=== PATIENT | female | born 1995 | race Hispanic/Latino ===

== ENCOUNTER 2016-03-30 10:31 | Emergency (ER) | payer OTHER ==
[2016-03-30] MEDS ORDERED: ONDANSETRON 4MG/2ML VIAL (J2405) As Ordered ONE (11:41)
[2016-03-30] MEDS ORDERED: KETOROLAC 30 MG/ML VIAL (J1885) As Ordered ONE (11:41)
[2016-03-30] MEDS ORDERED: methylPREDNISolone INJ 125 MG/2 ML VIAL (J2930) As Ordered ONE (11:41)
[2016-03-30 12:09] LABS: CONTROL LINE UCG INT CTR LINE PRESENT
[2016-03-30 12:14] LABS: BASO # 0.1 K/mm3 (0.0-0.2); BASO % 1.3 % (0.0-1.0); EOS # 0.2 K/mm3 (0.0-0.50); EOS % 4.2 % (0.0-3.0); LARGE UNSTAINED CELL # 0.1 K/mm3 (0.0-0.4); LARGE UNSTAINED CELL % 2.5 % (0.0-4.0); LYMPH # 1.3 K/mm3 (1.5-6.5); LYMPH % 21.1 % (24.0-44.0); MEAN CORPUSCULAR HEMOGLOBIN 32.2 pg (27.0-33.0); MEAN CORPUSCULAR HGB CONC 32.9 g/dl (32.0-36.5); MEAN CORPUSCULAR VOLUME 97.9 fl (80.0-96.0); MONO # 0.3 K/mm3 (0.0-0.8); NEUTROPHILS # 3.7 K/mm3 (1.8-7.7); PLATELET COUNT, AUTOMATED 213 k/mm3 (150-450); RED CELL DISTRIBUTION WIDTH 13.2 % (11.5-14.5); WHITE BLOOD COUNT 5.6 K/mm3 (4.0-10.0)
[2016-03-30 12:21] LABS: ALBUMIN 3.9 GM/DL (3.2-5.2); ALBUMIN/GLOBULIN RATIO 0.89 (1.00-1.93); ALKALINE PHOSPHATASE 63 U/L (45-117); ALT/SGPT 35 U/L (12-78); ANION GAP 7 MEQ/L (8-16); AST/SGOT 22 U/L (15-37); BILIRUBIN,DIRECT 0.1 MG/DL (0.0-0.2); BILIRUBIN,TOTAL 0.3 MG/DL (0.2-1.0); BLOOD UREA NITROGEN 7 MG/DL (7-18); CALCIUM LEVEL 8.8 MG/DL (8.5-10.1); CARBON DIOXIDE LEVEL 26 MEQ/L (21-32); CHLORIDE LEVEL 106 MEQ/L (98-107); CREATININE FOR GFR 0.67 MG/DL (0.55-1.02); GLOMERULAR FILTRATION RATE > 60.0 (>60); GLUCOSE, FASTING 84 MG/DL (70-105); POTASSIUM SERUM 3.8 MEQ/L (3.5-5.1); SODIUM LEVEL 139 MEQ/L (136-145); TOTAL PROTEIN 8.3 GM/DL (6.4-8.2)
--- NOTE | 2016-03-30 13:01 | EDDOCDS ---
Physician Documentation [facility] Name: Capri Bolaños Age: 21 yrs Sex: Female : 1995 Arrival Date: 03/30/2016 Time: 10:31 Bed I4 / M4 Private MD: BEBO Biswas Disposition: 03/30/16 12:47 Discharged to Home/Self Care. Impression: Ulcerative colitis. - Condition is Stable. - Discharge Instructions: Ulcerative Colitis. - Prescriptions for Ultram 50 mg Oral Tablet - take 1 tablet by ORAL route every 6 hours As needed MDD: 4 tabs; 16 tablet. Medrol (Agus) 4 mg Oral Tablets, Dose Pack - take 1 Pack by ORAL route as directed - follow package instructions; 1 packet. ZOFRAN ODT 4 mg - dissolve 1 tablet by ORAL route 4 times per day As needed do not chew, do not swallow whole; 10 tablet. - Medication Reconciliation, Local Pharmacy Hours form. - Follow up: Emergency Department; When: As needed; Reason: Worsening of conditions. Follow up: BEBO Biswas; When: Call to arrange an appointment; Reason: Wound/Symptom Recheck, Recheck today's complaints, Worsening of conditions, Continuance of care. - Problem is an ongoing problem. - Symptoms have improved. Historical: - Allergies: Clindamycin (diarrhea); - Home Meds: 1. Enema Disposable 19-7 gram/118 mL Rectal enem as needed (Last dose: 03/14/2016) 2. Iron CR Oral 2 tab daily hasnt been taking 3. lealda 2 pills daily (Last dose: 03/29/2016 21:00) 4. acetaminophen 500 mg Oral cap 2 caps (Last dose: 03/28/2016) - PMHx: Ulcerative Colitis; - PSHx: Tonsillectomy; coccyx cyst; - Social history: Smoking status: Patient states was never smoker of tobacco. No barriers to communication noted, The patient speaks fluent Latvian, Speaks appropriately for age, Patient uses street drugs, marijuana. - Family history: Not pertinent. - : The pt / caregiver states he / she is not on anticoagulants. Home medication list is obtained from the patient. - Exposure Risk Screening:: None identified. Vital Signs: 03/30 10:33 BP 115 / 69; Pulse 73; Resp 18; Temp 98.0; Pulse Ox 99% ; Weight 64.86 kg / 142.99 lbs; elp Height 5 ft. 0 in. (152.40 cm); Pain 9/10; 12:49 BP 103 / 51 LA Supine (auto/reg); Pulse 56; Resp 16; Temp 99.0(O); Pulse Ox 98% ; Pain jrd 5/10; 10:33 Body Mass Index 27.93 (64.86 kg, 152.40 cm) elp MDM: 11:33 NS 0.9% 1000 ml IV at bolus once ordered. cc10 11:33 Ondansetron 4 mg IVP once ordered. cc10 11:33 ketorolac 30 mg IVP once ordered. cc10 11:33 IV Saline Lock ordered. cc10 11:33 Undress patient appropriately for examination ordered. cc10 11:33 Solu-MEDROL 125 mg IVP once ordered. cc10 11:34 Basic Metabolic Profile Ordered. EDMS 11:34 CBC with Diff Ordered. EDMS 11:34 Lipase Ordered. EDMS 11:34 Liver Profile Ordered. EDMS 11:34 Urinalysis Ordered. EDMS 11:35 NOTHING BY MOUTH+DIET ordered. EDMS 11:58 UCG- In Lab Ordered. EDMS 12:39 Basic Metabolic Profile Reviewed. cc10 12:39 CBC with Diff Reviewed. cc10 12:39 Liver Profile Reviewed. cc10 12:39 Urinalysis Reviewed. cc10 12:39 Lipase Reviewed. cc10 12:39 UCG- In Lab Reviewed. cc10 Administered Medications: 11:53 Drug: NS 0.9% 1000 ml Route: IV; Rate: bolus; Site: right antecubital; [facility] 11:53 Drug: ketorolac 30 mg [ketorolac 30 mg/mL (1 mL) injection solution (1 mL)] Route: IVP; [facility] Site: right antecubital; 12:20 Follow up: Response: No Adverse Reaction; Pain is decreased ead 11:53 Drug: Solu-MEDROL 125 mg [Solu-Medrol 500 mg intravenous solution (125 mg)] Route: IVP; [facility] Site: right antecubital; 12:20 Follow up: Response: No Adverse Reaction ead 11:54 Drug: Ondansetron 4 mg Route: IVP; Site: right antecubital; [facility] 12:20 Follow up: Response: Nausea is decreased; No Adverse Reaction ead Signatures: Dispatcher [employer] Allison Garner RN RN hs1 Carmen DavisRN RN Michel Hunt PA-C PA-C cc10 Ezra Serna RN The chart was reviewed and I authenticate all verbal orders and agree with the evaluation and treatment provided.Corrections: (The following items were deleted from the chart) 11:58 11:33 UCG by Nursing ordered. cc10 jrd MTDD
--- NOTE | 2016-03-30 13:01 | EDDOCDS ---
Nurse's Notes [facility] Name: Capri Bolaños Age: 21 yrs Sex: Female : 1995 Arrival Date: 03/30/2016 Time: 10:31 Bed I4 / M4 Private MD: BEBO Biswas Diagnosis: Ulcerative colitis Presentation: 03/30 10:38 Presenting complaint: Patient states: abdominal pain x1 week. Patient also states here hs1 3 weeks ago for same. Patients states did not follow up with regular doctor. Patient states abdominal pain worse today. Patient states was diagnosed with ovarian cyst 3 weeks ago. Risk factors: the patient reports no vaginal bleeding. Adult Sepsis Screening: The patient does not have new or worsening altered mentation. Patient's respiratory rate is less than 22. Systolic blood pressure is greater than 100. Patient has a qSOFA score of 0- Negative Sepsis Screen. Suicide/Homicide risk assessment- the patient denies having any suicidal and/or homicidal ideations and does not present with any other emotional, behavioral or mental health complaints. Status: The patient is a dependent. Transition of care: patient was not received from another setting of care. 10:38 Acuity: NEREYDA Level 3 hs1 10:38 Method Of Arrival: Walkin/Carried/Asstd hs1 Triage Assessment: 10:42 General: Appears in no apparent distress, Behavior is appropriate for age, cooperative. hs1 Pain: Location: abdomen Pain currently is 9 out of 10 on a pain scale. HIV screening NA for this visit Offered previously. GI: Reports nausea, vomiting. Derm: Skin is pink, warm & dry. normal. Historical: - Allergies: Clindamycin (diarrhea); - Home Meds: 1. Enema Disposable 19-7 gram/118 mL Rectal enem as needed (Last dose: 03/14/2016) 2. Iron CR Oral 2 tab daily hasnt been taking 3. lealda 2 pills daily (Last dose: 03/29/2016 21:00) 4. acetaminophen 500 mg Oral cap 2 caps (Last dose: 03/28/2016) - PMHx: Ulcerative Colitis; - PSHx: Tonsillectomy; coccyx cyst; - Social history: Smoking status: Patient states was never smoker of tobacco. No barriers to communication noted, The patient speaks fluent [place], Speaks appropriately for age, Patient uses street drugs, marijuana. - Family history: Not pertinent. - : The pt / caregiver states he / she is not on anticoagulants. Home medication list is obtained from the patient. - Exposure Risk Screening:: None identified. Screenin:00 Screening information is obtained from the patient. Fall risk: No risks identified. ead Assistance ADL's: requires no assistance with activities of daily living. Abuse/DV Screen: The patient / caregiver reports he/she is: not in a situation that causes fear, pain or injury. Nutritional screening: No deficits noted. Advance Directives: Currently, there is no health care proxy. There is no Power of Bank Appraiser. home support is adequate. Assessment: 11:48 General: Appears in no apparent distress, well nourished, well groomed, Behavior is ead appropriate for age, cooperative. Pain: Location: abdomen Pain currently is 9 out of 10 on a pain scale. Neurological: No deficits noted. Respiratory: Airway is patent Respiratory effort is even, unlabored. GI: Abdomen is flat, non- distended Bowel sounds present X 4 quads. Abd is soft X 4 quads Abd is tender to palpation in right upper quadrant, left upper quadrant, right lower quadrant and left lower quadrant. Derm: Skin is pink, warm & dry. 12:48 General: Appears in no apparent distress, comfortable. Respiratory: Airway is patent ead Respiratory effort is even, unlabored. GI: Denies nausea, vomiting. Derm: Skin is pink, warm & dry. Vital Signs: 10:33 BP 115 / 69; Pulse 73; Resp 18; Temp 98.0; Pulse Ox 99% ; Weight 64.86 kg; Height 5 ft. elp 0 in. (152.40 cm); Pain 9/10; 12:49 BP 103 / 51 LA Supine (auto/reg); Pulse 56; Resp 16; Temp 99.0(O); Pulse Ox 98% ; Pain jrd 5/10; 10:33 Body Mass Index 27.93 (64.86 kg, 152.40 cm) [facility] Vitals: 10:33 Log In Time: March 30, 2016 at 10:25. [facility] ED Course: 10:33 Patient visited by Chelo Espinosa PCA. elp 10:33 BEBO Biswas is Private Physician. elp 10:33 Patient visited by Chelo Espinosa PCA. elp 10:33 Patient moved to Waiting elp 10:33 Patient moved to Pre RCE elp 10:40 Triage Initiated hs1 11:14 Patient moved to Triage 1 rs6 11:26 [facility]e [facility] cc10 11:26 Taran Montes MD is Attending Physician. cc10 11:26 Patient visited by Michel Agee PA-C. cc10 11:26 Patient visited by Michel Agee PA-C. cc10 11:36 Patient moved to I4 / M4 rs6 11:42 Patient visited by Carmen Davis,MARIUM. ead 11:48 The patient / caregiver is instructed regarding the plan of care and ED course. Patient ead has correct armband on for positive identification. Placed in gown. Bed in low position. Call light in reach. Side rails up X 1. Adult w/ patient. 11:48 Liver Profile Sent. ead 11:48 CBC with Diff Sent. ead 11:48 Basic Metabolic Profile Sent. ead 11:48 Lipase Sent. ead 11:48 Inserted peripheral IV: 20gauge IV in left antecubital area and blood collected. ead Patient tolerated the procedure well. 12:44 Patient visited by Carmen Davis,MARIUM. ead 12:46 True [facility] is Referral Physician. cc10 12:50 Patient visited by Juan Golud PCA. jrd 13:00 Discontinued IV intact, bleeding controlled, pressure dressing applied, No ead redness/swelling at site. No procedures done that require assistance. Administered Medications: 11:53 Drug: NS 0.9% 1000 ml Route: IV; Rate: bolus; Site: right antecubital; k 11:53 Drug: ketorolac 30 mg [ketorolac 30 mg/mL (1 mL) injection solution (1 mL)] Route: IVP; [facility] Site: right antecubital; 12:20 Follow up: Response: No Adverse Reaction; Pain is decreased ead 11:53 Drug: Solu-MEDROL 125 mg [Solu-Medrol 500 mg intravenous solution (125 mg)] Route: IVP; k Site: right antecubital; 12:20 Follow up: Response: No Adverse Reaction ead 11:54 Drug: Ondansetron 4 mg Route: IVP; Site: right antecubital; [facility] 12:20 Follow up: Response: Nausea is decreased; No Adverse Reaction ead Order Results: Lab Order: Basic Metabolic Profile; SPEC'03/30/16 11:44 Test: GLUCOSE, FASTING; Value: 84; Range: 70-105; Units: MG/DL; Status: F Test: BLOOD UREA NITROGEN; Value: 7; Range: 7-18; Units: MG/DL; Status: F Test: CREATININE FOR GFR; Value: 0.67; Range: 0.55-1.02; Units: MG/DL; Status: F Test: GLOMERULAR FILTRATION RATE; Value: > 60.0; Range: >60; Status: F Test: SODIUM LEVEL; Value: 139; Range: 136-145; Units: MEQ/L; Status: F Test: POTASSIUM SERUM; Value: 3.8; Range: 3.5-5.1; Units: MEQ/L; Status: F Test: CHLORIDE LEVEL; Value: 106; Range: 98-107; Units: MEQ/L; Status: F Test: CARBON DIOXIDE LEVEL; Value: 26; Range: 21-32; Units: MEQ/L; Status: F Test: ANION GAP; Value: 7; Range: 8-16; Abnormal: Below low normal; Units: MEQ/L; Status: F Test: CALCIUM LEVEL; Value: 8.8; Range: 8.5-10.1; Units: MG/DL; Status: F Test Note: ; Units are mL/min/1.73 m2 Chronic Kidney Disease Staging per NKF: Stage I & II GFR >=60 Normal to Mildly Decreased Stage III GFR 30-59 Moderately Decreased Stage IV GFR 15-29 Severely Decreased Stage V GFR <15 Very Little GFR Left ESRD GFR <15 on SOCIAL MEDIA JOB TITLES Lab Order: CBC with Diff; SPEC'M 03/30/16 11:44 Test: WHITE BLOOD COUNT; Value: 5.6; Range: 4.0-10.0; Units: K/mm3; Status: F Test: RED BLOOD COUNT; Value: 4.29; Range: 4.00-5.40; Units: M/mm3; Status: F Test: HEMOGLOBIN; Value: 13.8; Range: 12.0-16.0; Units: g/dl; Status: F Test: HEMATOCRIT; Value: 42.0; Range: 36.0-47.0; Units: %; Status: F Test: MEAN CORPUSCULAR VOLUME; Value: 97.9; Range: 80.0-96.0; Abnormal: Above high normal; Units: fl; Status: F Test: MEAN CORPUSCULAR HEMOGLOBIN; Value: 32.2; Range: 27.0-33.0; Units: pg; Status: F Test: MEAN CORPUSCULAR HGB CONC; Value: 32.9; Range: 32.0-36.5; Units: g/dl; Status: F Test: RED CELL DISTRIBUTION WIDTH; Value: 13.2; Range: 11.5-14.5; Units: %; Status: F Test: PLATELET COUNT, AUTOMATED; Value: 213; Range: 150-450; Units: k/mm3; Status: F Test: NEUTROPHILS %; Value: 65.0; Range: 36.0-66.0; Units: %; Status: F Test: LYMPH %; Value: 21.1; Range: 24.0-44.0; Abnormal: Below low normal; Units: %; Status: F Test: MONO %; Value: 6.0; Range: 0.0-5.0; Abnormal: Above high normal; Units: %; Status: F Test: EOS %; Value: 4.2; Range: 0.0-3.0; Abnormal: Above high normal; Units: %; Status: F Test: BASO %; Value: 1.3; Range: 0.0-1.0; Abnormal: Above high normal; Units: %; Status: F Test: LARGE UNSTAINED CELL %; Value: 2.5; Range: 0.0-4.0; Units: %; Status: F Test: NEUTROPHILS #; Value: 3.7; Range: 1.8-7.7; Units: K/mm3; Status: F Test: LYMPH #; Value: 1.3; Range: 1.5-6.5; Abnormal: Below low normal; Units: K/mm3; Status: F Test: MONO #; Value: 0.3; Range: 0.0-0.8; Units: K/mm3; Status: F Test: EOS #; Value: 0.2; Range: 0.0-0.50; Units: K/mm3; Status: F Test: BASO #; Value: 0.1; Range: 0.0-0.2; Units: K/mm3; Status: F Test: LARGE UNSTAINED CELL #; Value: 0.1; Range: 0.0-0.4; Units: K/mm3; Status: F Lab Order: Lipase; [facility] 03/30/16 11:44 Test: LIPASE; Value: 114; Range: 73-393; Units: U/L; Status: F Lab Order: Liver Profile; [facility] 03/30/16 11:44 Test: AST/SGOT; Value: 22; Range: 15-37; Units: U/L; Status: F Test: ALT/SGPT; Value: 35; Range: 12-78; Units: U/L; Status: F Test: ALKALINE PHOSPHATASE; Value: 63; Range: 45-117; Units: U/L; Status: F Test: BILIRUBIN,TOTAL; Value: 0.3; Range: 0.2-1.0; Units: MG/DL; Status: F Test: BILIRUBIN,DIRECT; Value: 0.1; Range: 0.0-0.2; Units: MG/DL; Status: F Test: TOTAL PROTEIN; Value: 8.3; Range: 6.4-8.2; Abnormal: Above high normal; Units: GM/DL; Status: F Test: ALBUMIN; Value: 3.9; Range: 3.2-5.2; Units: GM/DL; Status: F Test: ALBUMIN/GLOBULIN RATIO; Value: 0.89; Range: 1.00-1.93; Abnormal: Below low normal; Status: F Lab Order: Urinalysis; [facility] 03/30/16 11:42 Test: APPEARANCE, URINE; Value: CLEAR; Range: CLEAR; Status: F Test: COLOR, URINE; Value: YELLOW; Range: YELLOW; Status: F Test: PH,URINE; Value: 5.0; Range: 5.0-9.0; Units: UNITS; Status: F Test: SPECIFIC GRAVITY URINE AUTO; Value: 1.017; Range: 1.002-1.035; Status: F Test: PROTEIN, URINE AUTO; Value: NEGATIVE; Range: NEGATIVE; Units: mg/dL; Status: F Test: GLUCOSE, URINE (UA) AUTO; Value: NEGATIVE; Range: NEGATIVE; Units: mg/dL; Status: F Test: KETONE, URINE AUTO; Value: NEGATIVE; Range: NEGATIVE; Units: mg/dL; Status: F Test: UROBILINOGEN, URINE AUTO; Value: 0.2; Range: 0.0-2.0; Units: mg/dL; Status: F Test: BILIRUBIN, URINE AUTO; Value: NEGATIVE; Range: NEGATIVE; Status: F Test: NITRITE, URINE AUTO; Value: NEGATIVE; Range: NEGATIVE; Status: F Test: LEUKOCYTE ESTERASE, URINE AUTO; Value: NEGATIVE; Range: NEGATIVE; Status: F Test: BLOOD, URINE BLOOD; Value: 2+; Range: NEGATIVE; Abnormal: Above high normal; Status: F Test: WBC, URINE AUTO; Value: 1; Range: 0-3; Units: /HPF; Status: F Test: RBC, URINE AUTO; Value: 1; Range: 0-3; Units: /HPF; Status: F Test: BACTERIA, URINE AUTO; Value: NEGATIVE; Range: NEGATIVE; Status: F Test: SQUAMOUS EPITHELIAL CELL UR AU; Value: 2; Range: 0-6; Units: /HPF; Status: F Test: MUCUS, URINE; Value: SMALL; Range: NEGATIVE; Status: F Test: HYALINE CAST, URINE AUTO; Value: 1; Range: 0-1; Units: /LPF; Status: F Lab Order: UCG- In Lab; SPEC'M 03/30/16 11:41 Test: URINE PREG TEST; Value: NEGATIVE; Range: NEGATIVE; Status: F Outcome: 12:47 Discharge ordered by Provider. 10 12:58 Discharge Assessment: Patient awake and alert. obeys commands, Oriented to person, ead place and time. patient administered narcotics - no. The following High Risk Discharge criteria are identified: None. Discharged to home ambulatory, with significant other. Condition: improved. Discharge instructions given to patient, significant other, Instructed on discharge instructions, follow up and referral plans. medication usage, no driving heavy equipment, no drinking with medication, Demonstrated understanding of instructions, medications, Pt was receptive of discharge instructions/ teaching. Prescriptions given X 3. No special radiology studies were completed. Property sent home with patient. 13:00 Patient left the ED. ead Signatures: Ezra Serna RN RN jmk Sherrill, Hannah, RN RN hs1 Chelo Espinosa, [employer] WRESTLER SUM[employer] WRESTLER elp Susan,Carmen,RN RN ead Michel Agee, PA-C PA-C cc10 Juan Gould, [employer] WRESTLER SUM[employer] WRESTLER jrd Elisabet Gee, SUM[employer] WRESTLER SUM[employer] WRESTLER rs6 MTDD
--- NOTE | 2016-04-01 14:01 | EDDOCDS ---
Physician Documentation [facility] Name: Capri Bolaños Age: 21 yrs Sex: Female : 1995 Arrival Date: 03/30/2016 Time: 10:31 Bed I4 / M4 Private MD: BEBO Biswas Disposition: 03/30/16 12:47 Discharged to Home/Self Care. Impression: Ulcerative colitis. - Condition is Stable. - Discharge Instructions: Ulcerative Colitis. - Prescriptions for Ultram 50 mg Oral Tablet - take 1 tablet by ORAL route every 6 hours As needed MDD: 4 tabs; 16 tablet. Medrol (Agus) 4 mg Oral Tablets, Dose Pack - take 1 Pack by ORAL route as directed - follow package instructions; 1 packet. ZOFRAN ODT 4 mg - dissolve 1 tablet by ORAL route 4 times per day As needed do not chew, do not swallow whole; 10 tablet. - Medication Reconciliation, Local Pharmacy Hours form. - Follow up: Emergency Department; When: As needed; Reason: Worsening of conditions. Follow up: BEBO Biswas; When: Call to arrange an appointment; Reason: Wound/Symptom Recheck, Recheck today's complaints, Worsening of conditions, Continuance of care. - Problem is an ongoing problem. - Symptoms have improved. Historical: - Allergies: Clindamycin (diarrhea); - Home Meds: 1. Enema Disposable 19-7 gram/118 mL Rectal enem as needed (Last dose: 03/14/2016) 2. Iron CR Oral 2 tab daily hasnt been taking 3. lealda 2 pills daily (Last dose: 03/29/2016 21:00) 4. acetaminophen 500 mg Oral cap 2 caps (Last dose: 03/28/2016) - PMHx: Ulcerative Colitis; - PSHx: Tonsillectomy; coccyx cyst; - Social history: Smoking status: Patient states was never smoker of tobacco. No barriers to communication noted, The patient speaks fluent [place], Speaks appropriately for age, Patient uses street drugs, marijuana. - Family history: Not pertinent. - : The pt / caregiver states he / she is not on anticoagulants. Home medication list is obtained from the patient. - Exposure Risk Screening:: None identified. Vital Signs: 03/30 10:33 BP 115 / 69; Pulse 73; Resp 18; Temp 98.0; Pulse Ox 99% ; Weight 64.86 kg / 142.99 lbs; elp Height 5 ft. 0 in. (152.40 cm); Pain 9/10; 12:49 BP 103 / 51 LA Supine (auto/reg); Pulse 56; Resp 16; Temp 99.0(O); Pulse Ox 98% ; Pain jrd 5/10; 10:33 Body Mass Index 27.93 (64.86 kg, 152.40 cm) elp MDM: 11:33 NS 0.9% 1000 ml IV at bolus once ordered. cc10 11:33 Ondansetron 4 mg IVP once ordered. cc10 11:33 ketorolac 30 mg IVP once ordered. cc10 11:33 IV Saline Lock ordered. cc10 11:33 Undress patient appropriately for examination ordered. cc10 11:33 Solu-MEDROL 125 mg IVP once ordered. cc10 11:34 Basic Metabolic Profile Ordered. EDMS 11:34 CBC with Diff Ordered. EDMS 11:34 Lipase Ordered. EDMS 11:34 Liver Profile Ordered. EDMS 11:34 Urinalysis Ordered. EDMS 11:35 NOTHING BY MOUTH+DIET ordered. EDMS 11:58 UCG- In Lab Ordered. EDMS 12:39 Basic Metabolic Profile Reviewed. cc10 12:39 CBC with Diff Reviewed. cc10 12:39 Liver Profile Reviewed. cc10 12:39 Urinalysis Reviewed. cc10 12:39 Lipase Reviewed. cc10 12:39 UCG- In Lab Reviewed. cc10 15:12 T-Sheet-- Draft Copy was scanned into [employer] and attached to record. gb 03/31 08:05 [facility] Payment Agreement was scanned into [employer] and attached to record. lg Administered Medications: 03/30 11:53 Drug: NS 0.9% 1000 ml Route: IV; Rate: bolus; Site: right antecubital; [facility] 11:53 Drug: ketorolac 30 mg [ketorolac 30 mg/mL (1 mL) injection solution (1 mL)] Route: IVP; [facility] Site: right antecubital; 12:20 Follow up: Response: No Adverse Reaction; Pain is decreased ead 11:53 Drug: Solu-MEDROL 125 mg [Solu-Medrol 500 mg intravenous solution (125 mg)] Route: IVP; [facility] Site: right antecubital; 12:20 Follow up: Response: No Adverse Reaction ead 11:54 Drug: Ondansetron 4 mg Route: IVP; Site: right antecubital; [facility] 12:20 Follow up: Response: Nausea is decreased; No Adverse Reaction ead Signatures: Dispatcher [employer] EDMS JoannaKassandra moralez, Reg Reg gb Andry Flores, Reg Reg lg Allison Monique RN RN hs1 Carmen Davis RN RN ead Michel Agee, PA-C PA-C [email or web address] Ezra Serna RN The chart was reviewed and I authenticate all verbal orders and agree with the evaluation and treatment provided.Corrections: (The following items were deleted from the chart) 11:58 11:33 UCG by Nursing ordered. cc10 jrd Attachments: 15:12 T-Sheet-- Draft Copy gb 03/31 08:05 [facility] Payment Agreement lg Chart Complete MTDD
--- NOTE | 2016-04-01 14:01 | EDDOCDS ---
Nurse's Notes [facility] Name: Capri Bolaños Age: 21 yrs Sex: Female : 1995 Arrival Date: 03/30/2016 Time: 10:31 Bed I4 / M4 Private MD: BEBO Biswas Diagnosis: Ulcerative colitis Presentation: 03/30 10:38 Presenting complaint: Patient states: abdominal pain x1 week. Patient also states here hs1 3 weeks ago for same. Patients states did not follow up with regular doctor. Patient states abdominal pain worse today. Patient states was diagnosed with ovarian cyst 3 weeks ago. Risk factors: the patient reports no vaginal bleeding. Adult Sepsis Screening: The patient does not have new or worsening altered mentation. Patient's respiratory rate is less than 22. Systolic blood pressure is greater than 100. Patient has a qSOFA score of 0- Negative Sepsis Screen. Suicide/Homicide risk assessment- the patient denies having any suicidal and/or homicidal ideations and does not present with any other emotional, behavioral or mental health complaints. Status: The patient is a dependent. Transition of care: patient was not received from another setting of care. 10:38 Acuity: NEREYDA Level 3 hs1 10:38 Method Of Arrival: Walkin/Carried/Asstd hs1 Triage Assessment: 10:42 General: Appears in no apparent distress, Behavior is appropriate for age, cooperative. hs1 Pain: Location: abdomen Pain currently is 9 out of 10 on a pain scale. HIV screening NA for this visit Offered previously. GI: Reports nausea, vomiting. Derm: Skin is pink, warm & dry. normal. Historical: - Allergies: Clindamycin (diarrhea); - Home Meds: 1. Enema Disposable 19-7 gram/118 mL Rectal enem as needed (Last dose: 03/14/2016) 2. Iron CR Oral 2 tab daily hasnt been taking 3. lealda 2 pills daily (Last dose: 03/29/2016 21:00) 4. acetaminophen 500 mg Oral cap 2 caps (Last dose: 03/28/2016) - PMHx: Ulcerative Colitis; - PSHx: Tonsillectomy; coccyx cyst; - Social history: Smoking status: Patient states was never smoker of tobacco. No barriers to communication noted, The patient speaks fluent Bulgarian, Speaks appropriately for age, Patient uses street drugs, marijuana. - Family history: Not pertinent. - : The pt / caregiver states he / she is not on anticoagulants. Home medication list is obtained from the patient. - Exposure Risk Screening:: None identified. Screenin:00 Screening information is obtained from the patient. Fall risk: No risks identified. ead Assistance ADL's: requires no assistance with activities of daily living. Abuse/DV Screen: The patient / caregiver reports he/she is: not in a situation that causes fear, pain or injury. Nutritional screening: No deficits noted. Advance Directives: Currently, there is no health care proxy. There is no Power of Textile Slitting Machine Operator. home support is adequate. Assessment: 11:48 General: Appears in no apparent distress, well nourished, well groomed, Behavior is ead appropriate for age, cooperative. Pain: Location: abdomen Pain currently is 9 out of 10 on a pain scale. Neurological: No deficits noted. Respiratory: Airway is patent Respiratory effort is even, unlabored. GI: Abdomen is flat, non- distended Bowel sounds present X 4 quads. Abd is soft X 4 quads Abd is tender to palpation in right upper quadrant, left upper quadrant, right lower quadrant and left lower quadrant. Derm: Skin is pink, warm & dry. 12:48 General: Appears in no apparent distress, comfortable. Respiratory: Airway is patent ead Respiratory effort is even, unlabored. GI: Denies nausea, vomiting. Derm: Skin is pink, warm & dry. Vital Signs: 10:33 BP 115 / 69; Pulse 73; Resp 18; Temp 98.0; Pulse Ox 99% ; Weight 64.86 kg; Height 5 ft. elp 0 in. (152.40 cm); Pain 9/10; 12:49 BP 103 / 51 LA Supine (auto/reg); Pulse 56; Resp 16; Temp 99.0(O); Pulse Ox 98% ; Pain jrd 5/10; 10:33 Body Mass Index 27.93 (64.86 kg, 152.40 cm) [facility] Vitals: 10:33 Log In Time: March 30, 2016 at 10:25. [facility] ED Course: 10:33 Patient visited by Chelo Espinosa PCA. elp 10:33 BEBO Biswas is Private Physician. elp 10:33 Patient visited by Chelo Espinosa PCA. elp 10:33 Patient moved to Waiting elp 10:33 Patient moved to Pre RCE elp 10:40 Triage Initiated hs1 11:14 Patient moved to Triage 1 rs6 11:26 Michel Agee [facility]-C [facility] cc10 11:26 Taran Montes MD is Attending Physician. cc10 11:26 Patient visited by Michel Agee PA-C. cc10 11:26 Patient visited by Michel Agee PA-C. cc10 11:36 Patient moved to I4 / M4 rs6 11:42 Patient visited by Carmen Davis,RN. ead 11:48 The patient / caregiver is instructed regarding the plan of care and ED course. Patient ead has correct armband on for positive identification. Placed in gown. Bed in low position. Call light in reach. Side rails up X 1. Adult w/ patient. 11:48 Liver Profile Sent. ead 11:48 CBC with Diff Sent. ead 11:48 Basic Metabolic Profile Sent. ead 11:48 Lipase Sent. ead 11:48 Inserted peripheral IV: 20gauge IV in left antecubital area and blood collected. ead Patient tolerated the procedure well. 12:44 Patient visited by Carmen Davis,RN. ead 12:46 True [facility] is Referral Physician. cc10 12:50 Patient visited by Juan Gould PCA. jrd 13:00 Discontinued IV intact, bleeding controlled, pressure dressing applied, No ead redness/swelling at site. No procedures done that require assistance. 15:12 T-Sheet-- Draft Copy was scanned into [employer] and attached to record. gb 03/31 08:05 Patient name changed from Capri\S\Loren\S\Miky\S\ to Capri\S\ \S\Miky. EDMS 08:05 [facility] Payment Agreement was scanned into [employer] and attached to record. lg Administered Medications: 03/30 11:53 Drug: NS 0.9% 1000 ml Route: IV; Rate: bolus; Site: right antecubital; k 11:53 Drug: ketorolac 30 mg [ketorolac 30 mg/mL (1 mL) injection solution (1 mL)] Route: IVP; [facility] Site: right antecubital; 12:20 Follow up: Response: No Adverse Reaction; Pain is decreased ead 11:53 Drug: Solu-MEDROL 125 mg [Solu-Medrol 500 mg intravenous solution (125 mg)] Route: IVP; [facility] Site: right antecubital; 12:20 Follow up: Response: No Adverse Reaction ead 11:54 Drug: Ondansetron 4 mg Route: IVP; Site: right antecubital; [facility] 12:20 Follow up: Response: Nausea is decreased; No Adverse Reaction ead Order Results: Lab Order: Basic Metabolic Profile; SPEC'M 03/30/16 11:44 Test: GLUCOSE, FASTING; Value: 84; Range: 70-105; Units: MG/DL; Status: F Test: BLOOD UREA NITROGEN; Value: 7; Range: 7-18; Units: MG/DL; Status: F Test: CREATININE FOR GFR; Value: 0.67; Range: 0.55-1.02; Units: MG/DL; Status: F Test: GLOMERULAR FILTRATION RATE; Value: > 60.0; Range: >60; Status: F Test: SODIUM LEVEL; Value: 139; Range: 136-145; Units: MEQ/L; Status: F Test: POTASSIUM SERUM; Value: 3.8; Range: 3.5-5.1; Units: MEQ/L; Status: F Test: CHLORIDE LEVEL; Value: 106; Range: 98-107; Units: MEQ/L; Status: F Test: CARBON DIOXIDE LEVEL; Value: 26; Range: 21-32; Units: MEQ/L; Status: F Test: ANION GAP; Value: 7; Range: 8-16; Abnormal: Below low normal; Units: MEQ/L; Status: F Test: CALCIUM LEVEL; Value: 8.8; Range: 8.5-10.1; Units: MG/DL; Status: F Test Note: ; Units are mL/min/1.73 m2 Chronic Kidney Disease Staging per NKF: Stage I & II GFR >=60 Normal to Mildly Decreased Stage III GFR 30-59 Moderately Decreased Stage IV GFR 15-29 Severely Decreased Stage V GFR <15 Very Little GFR Left ESRD GFR <15 on SWAGING MACHINE ADJUSTER Lab Order: CBC with Diff; SPEC'M 03/30/16 11:44 Test: WHITE BLOOD COUNT; Value: 5.6; Range: 4.0-10.0; Units: K/mm3; Status: F Test: RED BLOOD COUNT; Value: 4.29; Range: 4.00-5.40; Units: M/mm3; Status: F Test: HEMOGLOBIN; Value: 13.8; Range: 12.0-16.0; Units: g/dl; Status: F Test: HEMATOCRIT; Value: 42.0; Range: 36.0-47.0; Units: %; Status: F Test: MEAN CORPUSCULAR VOLUME; Value: 97.9; Range: 80.0-96.0; Abnormal: Above high normal; Units: fl; Status: F Test: MEAN CORPUSCULAR HEMOGLOBIN; Value: 32.2; Range: 27.0-33.0; Units: pg; Status: F Test: MEAN CORPUSCULAR HGB CONC; Value: 32.9; Range: 32.0-36.5; Units: g/dl; Status: F Test: RED CELL DISTRIBUTION WIDTH; Value: 13.2; Range: 11.5-14.5; Units: %; Status: F Test: PLATELET COUNT, AUTOMATED; Value: 213; Range: 150-450; Units: k/mm3; Status: F Test: NEUTROPHILS %; Value: 65.0; Range: 36.0-66.0; Units: %; Status: F Test: LYMPH %; Value: 21.1; Range: 24.0-44.0; Abnormal: Below low normal; Units: %; Status: F Test: MONO %; Value: 6.0; Range: 0.0-5.0; Abnormal: Above high normal; Units: %; Status: F Test: EOS %; Value: 4.2; Range: 0.0-3.0; Abnormal: Above high normal; Units: %; Status: F Test: BASO %; Value: 1.3; Range: 0.0-1.0; Abnormal: Above high normal; Units: %; Status: F Test: LARGE UNSTAINED CELL %; Value: 2.5; Range: 0.0-4.0; Units: %; Status: F Test: NEUTROPHILS #; Value: 3.7; Range: 1.8-7.7; Units: K/mm3; Status: F Test: LYMPH #; Value: 1.3; Range: 1.5-6.5; Abnormal: Below low normal; Units: K/mm3; Status: F Test: MONO #; Value: 0.3; Range: 0.0-0.8; Units: K/mm3; Status: F Test: EOS #; Value: 0.2; Range: 0.0-0.50; Units: K/mm3; Status: F Test: BASO #; Value: 0.1; Range: 0.0-0.2; Units: K/mm3; Status: F Test: LARGE UNSTAINED CELL #; Value: 0.1; Range: 0.0-0.4; Units: K/mm3; Status: F Lab Order: Lipase; [facility]' 03/30/16 11:44 Test: LIPASE; Value: 114; Range: 73-393; Units: U/L; Status: F Lab Order: Liver Profile; [facility]' 03/30/16 11:44 Test: AST/SGOT; Value: 22; Range: 15-37; Units: U/L; Status: F Test: ALT/SGPT; Value: 35; Range: 12-78; Units: U/L; Status: F Test: ALKALINE PHOSPHATASE; Value: 63; Range: 45-117; Units: U/L; Status: F Test: BILIRUBIN,TOTAL; Value: 0.3; Range: 0.2-1.0; Units: MG/DL; Status: F Test: BILIRUBIN,DIRECT; Value: 0.1; Range: 0.0-0.2; Units: MG/DL; Status: F Test: TOTAL PROTEIN; Value: 8.3; Range: 6.4-8.2; Abnormal: Above high normal; Units: GM/DL; Status: F Test: ALBUMIN; Value: 3.9; Range: 3.2-5.2; Units: GM/DL; Status: F Test: ALBUMIN/GLOBULIN RATIO; Value: 0.89; Range: 1.00-1.93; Abnormal: Below low normal; Status: F Lab Order: Urinalysis; [facility] 03/30/16 11:42 Test: APPEARANCE, URINE; Value: CLEAR; Range: CLEAR; Status: F Test: COLOR, URINE; Value: YELLOW; Range: YELLOW; Status: F Test: PH,URINE; Value: 5.0; Range: 5.0-9.0; Units: UNITS; Status: F Test: SPECIFIC GRAVITY URINE AUTO; Value: 1.017; Range: 1.002-1.035; Status: F Test: PROTEIN, URINE AUTO; Value: NEGATIVE; Range: NEGATIVE; Units: mg/dL; Status: F Test: GLUCOSE, URINE (UA) AUTO; Value: NEGATIVE; Range: NEGATIVE; Units: mg/dL; Status: F Test: KETONE, URINE AUTO; Value: NEGATIVE; Range: NEGATIVE; Units: mg/dL; Status: F Test: UROBILINOGEN, URINE AUTO; Value: 0.2; Range: 0.0-2.0; Units: mg/dL; Status: F Test: BILIRUBIN, URINE AUTO; Value: NEGATIVE; Range: NEGATIVE; Status: F Test: NITRITE, URINE AUTO; Value: NEGATIVE; Range: NEGATIVE; Status: F Test: LEUKOCYTE ESTERASE, URINE AUTO; Value: NEGATIVE; Range: NEGATIVE; Status: F Test: BLOOD, URINE BLOOD; Value: 2+; Range: NEGATIVE; Abnormal: Above high normal; Status: F Test: WBC, URINE AUTO; Value: 1; Range: 0-3; Units: /HPF; Status: F Test: RBC, URINE AUTO; Value: 1; Range: 0-3; Units: /HPF; Status: F Test: BACTERIA, URINE AUTO; Value: NEGATIVE; Range: NEGATIVE; Status: F Test: SQUAMOUS EPITHELIAL CELL UR AU; Value: 2; Range: 0-6; Units: /HPF; Status: F Test: MUCUS, URINE; Value: SMALL; Range: NEGATIVE; Status: F Test: HYALINE CAST, URINE AUTO; Value: 1; Range: 0-1; Units: /LPF; Status: F Lab Order: UCG- In Lab; SPEC'M 03/30/16 11:41 Test: URINE PREG TEST; Value: NEGATIVE; Range: NEGATIVE; Status: F Outcome: 12:47 Discharge ordered by Provider. cc10 12:58 Discharge Assessment: Patient awake and alert. obeys commands, Oriented to person, ead place and time. patient administered narcotics - no. The following High Risk Discharge criteria are identified: None. Discharged to home ambulatory, with significant other. Condition: improved. Discharge instructions given to patient, significant other, Instructed on discharge instructions, follow up and referral plans. medication usage, no driving heavy equipment, no drinking with medication, Demonstrated understanding of instructions, medications, Pt was receptive of discharge instructions/ teaching. Prescriptions given X 3. No special radiology studies were completed. Property sent home with patient. 13:00 Patient left the ED. ead Signatures: Dispatcher [employer] EDMS Ezra Serna,RN RN Kassandra Pulido, Reg Reg gb Andry Flores, Reg Reg lg Allison Monique RN RN hs1 Chelo Espinosa, INK MAKER INK MAKER Carmen ShankarRN RN ead Michel Agee, PA-C PA-C cc10 Juan Gould, INK MAKER INK MAKER Elisabet Anderson, INK MAKER INK MAKER rs6 Chart Complete MTDKiki
--- NOTE | 2016-04-01 14:01 | EDDOCDS ---
Physician Documentation [facility] Name: Capri Bolaños Age: 21 yrs Sex: Female : 1995 Arrival Date: 03/30/2016 Time: 10:31 Bed I4 / M4 Private MD: BEBO Biswas Disposition: 03/30/16 12:47 Discharged to Home/Self Care. Impression: Ulcerative colitis. - Condition is Stable. - Discharge Instructions: Ulcerative Colitis. - Prescriptions for Ultram 50 mg Oral Tablet - take 1 tablet by ORAL route every 6 hours As needed MDD: 4 tabs; 16 tablet. Medrol (Agus) 4 mg Oral Tablets, Dose Pack - take 1 Pack by ORAL route as directed - follow package instructions; 1 packet. ZOFRAN ODT 4 mg - dissolve 1 tablet by ORAL route 4 times per day As needed do not chew, do not swallow whole; 10 tablet. - Medication Reconciliation, Local Pharmacy Hours form. - Follow up: Emergency Department; When: As needed; Reason: Worsening of conditions. Follow up: BEBO Biswas; When: Call to arrange an appointment; Reason: Wound/Symptom Recheck, Recheck today's complaints, Worsening of conditions, Continuance of care. - Problem is an ongoing problem. - Symptoms have improved. Historical: - Allergies: Clindamycin (diarrhea); - Home Meds: 1. Enema Disposable 19-7 gram/118 mL Rectal enem as needed (Last dose: 03/14/2016) 2. Iron CR Oral 2 tab daily hasnt been taking 3. lealda 2 pills daily (Last dose: 03/29/2016 21:00) 4. acetaminophen 500 mg Oral cap 2 caps (Last dose: 03/28/2016) - PMHx: Ulcerative Colitis; - PSHx: Tonsillectomy; coccyx cyst; - Social history: Smoking status: Patient states was never smoker of tobacco. No barriers to communication noted, The patient speaks fluent Swazi, Speaks appropriately for age, Patient uses street drugs, marijuana. - Family history: Not pertinent. - : The pt / caregiver states he / she is not on anticoagulants. Home medication list is obtained from the patient. - Exposure Risk Screening:: None identified. Vital Signs: 03/30 10:33 BP 115 / 69; Pulse 73; Resp 18; Temp 98.0; Pulse Ox 99% ; Weight 64.86 kg / 142.99 lbs; elp Height 5 ft. 0 in. (152.40 cm); Pain 9/10; 12:49 BP 103 / 51 LA Supine (auto/reg); Pulse 56; Resp 16; Temp 99.0(O); Pulse Ox 98% ; Pain jrd 5/10; 10:33 Body Mass Index 27.93 (64.86 kg, 152.40 cm) elp MDM: 11:33 NS 0.9% 1000 ml IV at bolus once ordered. cc10 11:33 Ondansetron 4 mg IVP once ordered. cc10 11:33 ketorolac 30 mg IVP once ordered. cc10 11:33 IV Saline Lock ordered. cc10 11:33 Undress patient appropriately for examination ordered. cc10 11:33 Solu-MEDROL 125 mg IVP once ordered. cc10 11:34 Basic Metabolic Profile Ordered. EDMS 11:34 CBC with Diff Ordered. EDMS 11:34 Lipase Ordered. EDMS 11:34 Liver Profile Ordered. EDMS 11:34 Urinalysis Ordered. EDMS 11:35 NOTHING BY MOUTH+DIET ordered. EDMS 11:58 UCG- In Lab Ordered. EDMS 12:39 Basic Metabolic Profile Reviewed. cc10 12:39 CBC with Diff Reviewed. cc10 12:39 Liver Profile Reviewed. cc10 12:39 Urinalysis Reviewed. cc10 12:39 Lipase Reviewed. cc10 12:39 UCG- In Lab Reviewed. cc10 15:12 T-Sheet-- Draft Copy was scanned into [email or web address] and attached to record. gb 03/31 08:05 [facility] Payment Agreement was scanned into [email or web address] and attached to record. lg Administered Medications: 03/30 11:53 Drug: NS 0.9% 1000 ml Route: IV; Rate: bolus; Site: right antecubital; [facility] 11:53 Drug: ketorolac 30 mg [ketorolac 30 mg/mL (1 mL) injection solution (1 mL)] Route: IVP; [facility] Site: right antecubital; 12:20 Follow up: Response: No Adverse Reaction; Pain is decreased ead 11:53 Drug: Solu-MEDROL 125 mg [Solu-Medrol 500 mg intravenous solution (125 mg)] Route: IVP; [facility] Site: right antecubital; 12:20 Follow up: Response: No Adverse Reaction ead 11:54 Drug: Ondansetron 4 mg Route: IVP; Site: right antecubital; [facility] 12:20 Follow up: Response: Nausea is decreased; No Adverse Reaction ead Signatures: Dispatcher [employer] EDMS JoannaKassandra moralez, Reg Reg gb Andry Flores, Reg Reg lg Allison Monique RN RN hs1 Carmen Davis RN RN ead Michel Agee, PA-C PA-C [email or web address] Ezra Serna RN The chart was reviewed and I authenticate all verbal orders and agree with the evaluation and treatment provided.Corrections: (The following items were deleted from the chart) 11:58 11:33 UCG by Nursing ordered. cc10 jrd Attachments: 15:12 T-Sheet-- Draft Copy gb 03/31 08:05 [facility] Payment Agreement lg Chart Complete MTDD
== END 2016-03-30 13:00 | disposition home or self-care (01) ==
LOC: M ED 10:31
DX: K51.90 Ulcerative colitis, unspecified, without complications (principal); R11.10 Vomiting, unspecified; Z79.899 Other long term (current) drug therapy; Z88.1 Allergy status to other antibiotic agents
CPT/HCPCS: 36415; 80048; 80076; 81001; 83690; 84703; 85025; 96374; 96375; 99284; J1885; J2405; J2930